=== PATIENT | male | born 1945 | race Caucasian/White ===

== ENCOUNTER 2018-06-15 19:26 | Emergency (ER) | payer MEDICARE ==
[~2018-06-15] VITALS: Ht 172.7 cm; Wt 95.3 kg
[~2018-06-15 19:26] MED LIST: ASPIRIN81 M2 PO; ASPRIMOX 325 M325 MG PO; IBUPROFEN 800800 MG PO; LISINOPRIL-HCT1 EACH PO; LOVASTAT40; NORVASC 5 MG TAB5 MG PO; PERCOCET 5-3251 EACH PO; PRINIVIL20 MG PO; ZOFRAN ODT4 MG PO
[2018-06-15] MEDS ORDERED: CARDURA1 MG PO (19:33)
[2018-06-15] MEDS ORDERED: IBUPROFEN 800800 M1 PO (20:18)
[2018-06-15 20:24] VITALS: BP 155/97
== END 2018-06-15 20:24 | disposition home or self-care (01) ==
LOC: M.ERS 19:26
DX: K11.20 Sialoadenitis, unspecified (principal); I10 Essential (primary) hypertension; E78.00 Pure hypercholesterolemia, unspecified; Z90.89 Acquired absence of other organs